=== PATIENT | male | born 1995 | race Hispanic/Latino ===

== ENCOUNTER → 2019-05-07 | Day surgery (SDC) | payer BC ==
[~2019-05-07] MED LIST: CEFAZOLIN SOD 1 GM/NS 50ML 50 ML IV ONE; DEXAMETHASONE SOD PHOS INJ 4 MG/ML VIAL ONE; FENTANYL CITRATE/PF 100MCG/2 ML INJ ONE; HYDROMORPHONE 2MG/ML 2 MG/ML ML ONE; KETOROLAC TROMETHAMINE 30 MG/ML VIAL ONE; LIDOCAINE HCL 2% LOCAL INJ 5 ML SDV VIAL INJ ONE; MIDAZOLAM HCL 2 MG/2 ML VIAL ONE; ONDANSETRON HCL INJ 2MG/ML 2ML 2 MG/ML VIAL ONE; PROPOFOL IV EMULSION 10 MG/ML 20 ML VIAL ONE; SEVOFLURANE INHAL SOLN 250 ML PEN BTL ONE; TYLENOL WITH C1 EACH PO
--- OUTSIDE RECORDS SUMMARY | 2019-05-07 05:38 | XMS REPORT ---
Author Author [facility] Address Unknown Phone Unavailable Care Team Providers [employer] Head Name Role Phone Unavailable Unavailable Payers Payer Name Policy Type Policy Number Effective Date Expiration Date Problems This patient has no known problems. Allergies, Adverse Reactions, Alerts Allergy Name Allergy Type Status Severity Reaction(s) Onset Date Inactive Date Treating Clinician Comments No Known Allergies DA Active U 2019-04-05 00:00:00 No Known Allergies DA Active U 2019-01-30 00:00:00 No Known Allergies DA Active U 2015-03-19 00:00:00 Medications This patient has no known medications. Results Test Description Test Time Test Comments Text Results Atomic Results Result Comments - CT ABD PELVIS W/CONT 2019-04-05 13:17:00 Name: MARIANNE SMITH [facility] : 1995 Age/S: 23 / M [address] [facility] Unit #: [id number] Loc: [place] [address] Phys: Ramon Redman EQUIPMENT COORDINATOR Acct: [id number] Dis Date: Status: REG ER PHONE #: [phone] Exam Date: 04/05/2019 1254 FAX #: [phone] Reason: LLQ ABDOMINAL PAIN EXAMS: CPT CODE: [id number] CT ABD PELVIS W/CONT 87499 HISTORY: Left lower quadrant pain. COMPARISON: January 30, 2019. CT abdomen and pelvis with IV contrast: 100 mL of Isovue-370. Automated exposure control. CT ABDOMEN: The lung bases are clear. The liver is enhancing homogeneously. No discrete parenchymal mass. Gallbladder is without radiopaque stones. Portal vein and hepatic artery are patent. The liver is measuring 19.6 cm in length. The spleen is normal. The stomach distended incompletely but it is normal in appearance. Pancreas is enhancing homogeneously. Unremarkable adrenals. Kidneys are free from hydroureteronephrosis. Homogeneous enhancement. Bilateral excretion is noted. No pathologic adenopathy. Well-opacified abdominal and pelvic vasculature. No bowel obstruction or colitis or diverticulitis or enteritis. CT PELVIS: Poorly visualized normal appendix. No inflammatory changes are noted. Pelvic bowel loops are unobstructed. Decompressed urinary bladder is limited in evaluation. The prostate is enlarged. No pelvic pathologic adenopathy. No free fluid or free air or abscess. The subcutaneous tissues and the musculature demonstrating normal appearance. No lytic or blastic lesions are noted within the bony skeleton. IMPRESSION: PAGE 1 Signed Report (CONTINUED) Name: MARIANNE SMITH [facility] : 1995 Age/S: 23 / M [address] [facility] Unit #: [id number] Loc: [place] [address] Phys: Ramon Redman NP Acct: [id number] Dis Date: Status: R EG ER PHONE #: [phone] Exam Date: 04/05/2019 1254 FAX #: [phone] Reason: LLQ ABDOMINAL PAIN EXAMS: CPT CODE: [id number] CT ABD PELVIS W/CONT 82965 <Continued> No acute intra-abdominal or intrapelvic pathology. at 1317 Reported and signed by: Dom Aponte M.D. CC: Ramon Redman NP Technologist:RT Isabelle(R),CT CTDI: DLP: Trnscb Date/Time: 04/05/2019 (1317) t.KAVINR.TH4 Orig Print D/T: S: 04/05/2019 (5966) PAGE 2 Signed Report BASIC METABOLIC PANEL 2019-04-05 12:45:00 SODIUM (test code=NA) 139 mmol/L 136-145 POTASSIUM (test code=K) 4.5 mmol/L 3.5-5.1 CHLORIDE (test code=CL) 105.0 mmol/L 98-107 CARBON DIOXIDE (test code=CO2) 31.0 mmol/L 21-32 ANION GAP (test code=GAP) 7.5 10-20 GLUCOSE (test code=GLU) 85 mg/dL 74-106 BLOOD UREA NITROGEN (test code=BUN) 14 mg/dL 7-18 GLOMERULAR FILTRATION RATE (test code=GFR) > 60 mL/min >=60 Estimated GFR by using Modified MDRD formula.Chronic kidney disease is defined as either kidney damageor GFR <60 mL/min/1.73 m2 for >3 months. CREATININE (test code=CREAT) 0.92 mg/dL 0.7-1.3 BUN/CREATININE RATIO (test code=BUN/CREA) 15.2 10-20 CALCIUM (test code=CA) 9.6 mg/dL 8.5-10.1 HEPATIC FUNCTION [id number] 12:45:00* Test Item Value Reference Range Comments TOTAL PROTEIN (test code=PROT) 8.5 gram/dL 6.4-8.2 ALBUMIN (test code=ALB) 4.7 g/dL 3.4-5.0 GLOBULIN (test code=GLOB) 3.8 gram/dL 2.7-4.2 ALBUMIN/GLOBULIN RATIO (test code=A/G) 1.2 0.75-1.50 BILIRUBIN TOTAL (test code=BILT) 0.70 mg/dL 0.0-1.0 BILIRUBIN DIRECT (test code=BILD) 0.70 mg/dL 0.0-0.20 SGOT/AST (test code=AST) 12 IUnit/L 15-37 SGPT/ALT (test code=ALT) 25 IUnit/L 12-78 ALKALINE PHOSPHATASE TOTAL (test code=ALKP) 59 IUnit/L 45-117 Note change in reference range due to change in reagent. [id number] 12:45:00* Test Item Value Reference Range Comments LIPASE (test code=LIP) 112 U/L 73.0-393.0 BASIC METABOLIC [id number] 11:40:00* Test Item Value Reference Range Comments SODIUM (test code=NA) 139 mmol/L 136-145 POTASSIUM (test code=K) 4.5 mmol/L 3.5-5.1 CHLORIDE (test code=CL) 105.0 mmol/L 98-107 CARBON DIOXIDE (test code=CO2) mmol/L 21-32 ANION GAP (test code=GAP) 10-20 GLUCOSE (test code=GLU) mg/dL 74-106 BLOOD UREA NITROGEN (test code=BUN) mg/dL 7-18 GLOMERULAR FILTRATION RATE (test code=GFR) mL/min >=60 CREATININE (test code=CREAT) mg/dL 0.7-1.3 BUN/CREATININE RATIO (test code=BUN/CREA) 10-20 CALCIUM (test code=CA) mg/dL 8.5-10.1 HEPATIC FUNCTION [id number] 11:40:00* Test Item Value Reference Range Comments TOTAL PROTEIN (test code=PROT) gram/dL 6.4-8.2 ALBUMIN (test code=ALB) g/dL 3.4-5.0 GLOBULIN (test code=GLOB) gram/dL 2.7-4.2 ALBUMIN/GLOBULIN RATIO (test code=A/G) 0.75-1.50 BILIRUBIN TOTAL (test code=BILT) mg/dL 0.0-1.0 BILIRUBIN DIRECT (test code=BILD) mg/dL 0.0-0.20 SGOT/AST (test code=AST) IUnit/L 15-37 SGPT/ALT (test code=ALT) IUnit/L 12-78 ALKALINE PHOSPHATASE TOTAL (test code=ALKP) IUnit/L 45-117 [id number] 11:40:00* Test Item Value Reference Range Comments LIPASE (test code=LIP) U/L 73.0-393.0 CBC W/O [id number] 11:27:00* Test Item Value Reference Range Comments WHITE BLOOD CELL (test code=WBC) 5.1 K/mm3 4.5-12.5 RED BLOOD CELL (test code=RBC) 5.53 mill/mm3 4.0-5.8 HEMOGLOBIN (test code=HGB) 16.4 gram/dL 13.0-17.5 HEMATOCRIT (test code=HCT) 48.8 % 42.0-52.0 MEAN CELL VOLUME (test code=MCV) 88.2 fL 80-98 MEAN CELL HGB (test code=MCH) 29.7 picogram 27.0-33.0 MEAN CELL HGB CONCETRATION (test code=MCHC) 33.6 gram/dL 33.0-36.0 RED CELL DISTRIBUTION WIDTH (test code=RDW) 12.8 % 11.6-16.2 PLATELET COUNT (test code=PLT) 245 K/mm3 150-450 MEAN PLATELET VOLUME (test code=MPV) 10.8 fL 6.7-11.0 URINALYSIS [id number] 11:24:00* Test Item Value Reference Range Comments UA COLOR (test code=COLU) Light-Yellow YELLOW UA APPEARANCE (test code=APPU) CLEAR CLEAR UA GLUCOSE DIPSTICK (test code=DGLUU) NEGATIVE mg/dL NEGATIVE UA BILIRUBIN DIPSTICK (test code=BILU) NEGATIVE mg/dL NEGATIVE UA KETONE DIPSTICK (test code=KETU) NEGATIVE mg/dL NEGATIVE UA SPECIFIC GRAVITY (test code=SGU) 1.015 1.001-1.035 UA BLOOD DIPSTICK (test code=SANDRO) Negative mg/dL NEGATIVE UA PH DIPSTICK (test code=LILIBETH) 7.0 5.0-8.0 UA PROTEIN DIPSTICK (test code=PROU) NEGATIVE mg/dL NEGATIVE UA UROBILINIOGEN DIPSTICK (test code=URO) Normal mg/dL NEGATIVE UA NITRITE DIPSTICK (test code=RAYNE) NEGATIVE NEGATIVE UA LEUKOCYTE ESTERASE W REFLEX (test code=LEUUR) NEGATIVE Shahab/uL NEGATIVE UA WBC (test code=WBCU) 0-5 per HPF 0-5 UA BACTERIA (test code=BACU) NONE SEEN #/HPF NONE Urine Source? Clean CatchDRUGS OF ABUSE SCREEN [id number] 11:24:00* Test Item Value Reference Range Comments URN COCAINE (test code=COCAURN) NEGATIVE <300 ng/mL URN CANNABINOIDS (test code=CANNABURN) NEGATIVE <50 ng/mL URN AMPHETAMINE (test code=AMPHETURN) NEGATIVE <1000 ng/mL URN BARBITURATE (test code=BARBITURN) NEGATIVE <200 ng/mL URN BENZODIAZEPINE (test code=BENZOURN) NEGATIVE <200 ng/mL URN OPIATES (test code=OPIATURN) NEGATIVE <300 ng/mL URN PHENCYCLIDINE (PCP) (test code=PHENCURN) NEGATIVE <25 ng/mL URN METHADONE (test code=METHAURN) NEGATIVE <300 ng/mL Urine Source? Clean CatchURINALYSIS [id number] 11:20:00* Test Item Value Reference Range Comments UA COLOR (test code=COLU) Light-Yellow YELLOW UA APPEARANCE (test code=APPU) CLEAR CLEAR UA GLUCOSE DIPSTICK (test code=DGLUU) NEGATIVE mg/dL NEGATIVE UA BILIRUBIN DIPSTICK (test code=BILU) NEGATIVE mg/dL NEGATIVE UA KETONE DIPSTICK (test code=KETU) NEGATIVE mg/dL NEGATIVE UA SPECIFIC GRAVITY (test code=SGU) 1.015 1.001-1.035 UA BLOOD DIPSTICK (test code=SANDRO) Negative mg/dL NEGATIVE UA PH DIPSTICK (test code=LILIBETH) 7.0 5.0-8.0 UA PROTEIN DIPSTICK (test code=PROU) NEGATIVE mg/dL NEGATIVE UA UROBILINIOGEN DIPSTICK (test code=URO) Normal mg/dL NEGATIVE UA NITRITE DIPSTICK (test code=RAYNE) NEGATIVE NEGATIVE UA LEUKOCYTE ESTERASE W REFLEX (test code=LEUUR) NEGATIVE Shahab/uL NEGATIVE UA WBC (test code=WBCU) 0-5 per HPF 0-5 UA BACTERIA (test code=BACU) NONE SEEN #/HPF NONE Urine Source? Clean CatchDRUGS OF ABUSE SCREEN [id number] 11:20:00* Test Item Value Reference Range Comments URN COCAINE (test code=COCAURN) <300 ng/mL URN CANNABINOIDS (test code=CANNABURN) <50 ng/mL URN AMPHETAMINE (test code=AMPHETURN) <1000 ng/mL URN BARBITURATE (test code=BARBITURN) <200 ng/mL URN BENZODIAZEPINE (test code=BENZOURN) <200 ng/mL URN OPIATES (test code=OPIATURN) <300 ng/mL URN PHENCYCLIDINE (PCP) (test code=PHENCURN) <25 ng/mL URN METHADONE (test code=METHAURN) <300 ng/mL Urine Source? Clean CatchCBC W/O [id number] 11:16:00* Test Item Value Reference Range Comments WHITE BLOOD CELL (test code=WBC) K/mm3 4.5-12.5 RED BLOOD CELL (test code=RBC) mill/mm3 4.0-5.8 HEMOGLOBIN (test code=HGB) 16.4 gram/dL 13.0-17.5 HEMATOCRIT (test code=HCT) 48.8 % 42.0-52.0 MEAN CELL VOLUME (test code=MCV) fL 80-98 MEAN CELL HGB (test code=MCH) picogram 27.0-33.0 MEAN CELL HGB CONCETRATION (test code=MCHC) gram/dL 33.0-36.0 RED CELL DISTRIBUTION WIDTH (test code=RDW) % 11.6-16.2 PLATELET COUNT (test code=PLT) K/mm3 150-450 MEAN PLATELET VOLUME (test code=MPV) fL 6.7-11.0 - CT ABD PELVIS [id number] 12:20:00 Name: MARIANNE SMITH [facility] : 1995 Age/S: 23 / M [address] [facility] Unit #: [id number] Loc: [place] [address] Phys: Tonia Johnson EQUIPMENT COORDINATOR Acct: [id number] Dis Date: Status: REG ER PHONE #: [phone] Exam Date: 01/30/2019 1006 FAX #: [phone] Reason: left side abd pain Report Has Been Amended EXAMS: CPT CODE: [id number] CT ABD PELVIS W/CONT 85371 Addendum - 01/30/2019 SIGNED 01/30/2019 ADDENDUM: [id number] CT/CTABPLW ADDENDUM: Outside images available for comparison from January 28, 2019. There is no intussusception on the current study at the site noted previously. at 1220 Reported and signed by: Dom Aponte M.D. Transcribed: 01/30/2019 (1220) t.[email or web address].TH4 Report HISTORY: Left-sided abdominal pain. COMPARISON: Abdominal ultrasound and x-ray from same day. CT of abdomen and pelvis with IV contrast: Automated exposure control. 100 and normal Isovue-370. CT of abdomen: The lung bases are clear. Small noncalcified 3 mm left basal lung nodule is too small to characterize. The liver is enhancing homogeneously no discrete mass is noted. Gallbladder is without radiopaque stones. The liver is measuring 18.4 cm in length. Portal vein is patent. Hepatic artery is patent. Unremarkable spleen. The stomach distended incompletely however it is normal in appearance. Pancreas is enhancing homogeneously. Adrenals are normal. Kidneys are free from hydroureteronephrosis. Homogeneous enhancement. Bilateral excretion. No pathologic adenopathy. Well-opacified abdominal and pelvic PAGE 1 Signed Report (CONTINUED) Name: MARIANNE SMITH [facility] : 1995 Age/S: 23 / M [address] [facility] Unit #: [id number] Loc: [place] [address] [facility] s: Tonia Johnson EQUIPMENT COORDINATOR Acct: [id number] Dis Date: Status: REG ER PHONE #: [phone] Exam Date: 01/30/2019 1006 FAX #: [phone] Reason: left side abd pain Report Has Been Amended EXAMS: CPT CODE: [id number] CT ABD PELVIS W/CONT 58622 <Continued> vasculature. Contrast within the colon. The small bowel loops are unremarkable. No obstruction or intussusception is visible. This fluid distention of the small bowel loops in the left upper quadrant with no wall thickening is noted. CT PELVIS: Appendix is normal. Pelvic bowel loops are unobstructed. Contrast is seen to the level of the rectum. No free fluid or free abscesses noted. The urinary bladder is distended incompletely but unremarkable. The prostate is not enlarged. No pelvic pathologic adenopathy. Subcutaneous tissues and the musculature are normal in appearance. No lytic or blastic lesions are noted within the bony skeleton. IMPRESSION: No evidence for intussusception on this examination. The small bowel loops are fluid-filled and the left upper quadrant. There is no obstruction with passage of contrast to the level of the rectum. No wall thickening is noted. Appendix is normal. No free fluid, free air or abscess is noted. at 1016 Reported and signed by: Dom Aponte M.D. CC: Jesse Ureña MD; Tonia Johnson NP Technologist:Nevaeh Henry RT(R); Mai Campos CTDI: DLP: Trnscb Date/Time: 01/30/2019 (1016) t.[email or web address] Orig Print D/T: S: 01/30/2019 (1019) CTDI: DLP: PAGE 2 Signed Report - CT ABD PELVIS [id number] 10:16:00 Name: MARIANNE SMITH [facility] : 1995 Age/S: 23 / M [address] Unit #: [id number] Loc: [place] [address] Phys: Armand Johnson n EQUIPMENT COORDINATOR Acct: [id number] Di s Date: Status: REG ER PHONE #: [phone] Exam Date: 01/30/2019 1003 FAX #: [phone] Reason: left side abd pain EXAMS: CPT CODE: [id number] CT ABD PELVIS W/CONT 94141 HISTORY: Left-sided abdom inal pain. COMPARISON: Abdominal ultrasound and x-ray from same da y. CT of abdomen and pelvis with IV contrast: Automated exposure c ontrol. 100 and normal Isovue-370. CT of abdomen: The lung bases are clear. Small noncalcified 3 mm left basal lung nodu le is too small to characterize. The liver is enhancing homogeneou sly no discrete mass is noted. Gallbladder is without radiopaque stones. T he liver is measuring 18.4 cm in length. Portal vein is patent. Hepatic ar bernie is patent. Unremarkable spleen. The stomach distended incompl etely however it is normal in appearance. Pancreas is enhanc ing homogeneously. Adrenals are normal. Kidneys are free from hydr oureteronephrosis. Homogeneous enhancement. Bilateral excretion. No pathologic adenopathy. Well-opacified abdominal and pelvic vascula ture. Contrast within the colon. The small bowel loops are unremar kable. No obstruction or intussusception is visible. This fluid distention of the small bowel loops in the left upper quadrant with no wall th ickening is noted. CT PELVIS: Appendix is normal. Pe lvic bowel loops are unobstructed. Contrast is seen to the level of the re ctum. No free fluid or free abscesses noted. The urinary odette dder is distended incompletely but unremarkable. The prostate is not enlar ged. No pelvic pathologic adenopathy. Subcutaneous tissues and the musculature are normal in appearance. No lytic or blastic lesions are not ed within the bony skeleton. IMPRESSION: PAGE 1 Signed Report (CONTINUED) Name: MARIANNE SMITH [facility] : 1995 Age/S: 23 / M [facility] Unit #: [id number] Loc: [place] [address] Phys: Tonia Johnson EQUIPMENT COORDINATOR Acct: [id number] Dis Date: atus: REG ER PHONE #: [phone] Exam Roderick e: 01/30/2019 1006 FAX #: [phone] Reason: left si de abd pain EXAMS: CPT CODE: [id number] CT ABD PELVIS W/CONT 27316 <Continued> No evidence for intussusception on this examination. The small bowel loops are fluid- filled and the left upper quadrant. There is no obstruction with passage of contrast to the level of the rectum. No wall thickening is noted. Appendix is normal. No free fluid, free air or abscess is noted. at 1016 Reported and signed by: Dom Aponte M.D. CC: Jesse Ureña MD; Tonia Johnson NP Technologist:Nevaeh Henry RT(R); Mai Campos CTDI: DLP: Trnscb Date/Time: 01/30/2019 (1016) [email or web address] Orig Print D/T: S: 01/30/2019 (1019) CTDI: DLP: PAGE 2 Signed Report BASIC METABOLIC [id number] 09:54:00* Test Item Value Reference Range Comments SODIUM (test code=NA) 141 mmol/L 136-145 POTASSIUM (test code=K) 4.9 mmol/L 3.5-5.1 CHLORIDE (test code=CL) 107.0 mmol/L 98-107 CARBON DIOXIDE (test code=CO2) 29.0 mmol/L 21-32 ANION GAP (test code=GAP) 9.9 10-20 GLUCOSE (test code=GLU) 88 mg/dL 74-106 BLOOD UREA NITROGEN (test code=BUN) 7 mg/dL 7-18 GLOMERULAR FILTRATION RATE (test code=GFR) > 60 mL/min >=60 Estimated GFR by using Modified MDRD formula.Chronic kidney disease is defined as either kidney damageor GFR <60 mL/min/1.73 m2 for >3 months. CREATININE (test code=CREAT) 0.80 mg/dL 0.7-1.3 BUN/CREATININE RATIO (test code=BUN/CREA) 8.8 10-20 CALCIUM (test code=CA) 9.3 mg/dL 8.5-10.1 HEPATIC FUNCTION [id number] 09:54:00* Test Item Value Reference Range Comments TOTAL PROTEIN (test code=PROT) 7.9 gram/dL 6.4-8.2 ALBUMIN (test code=ALB) 4.2 g/dL 3.4-5.0 GLOBULIN (test code=GLOB) 3.7 gram/dL 2.7-4.2 ALBUMIN/GLOBULIN RATIO (test code=A/G) 1.1 0.75-1.50 BILIRUBIN TOTAL (test code=BILT) 1.20 mg/dL 0.0-1.0 BILIRUBIN DIRECT (test code=BILD) 0.28 mg/dL 0.0-0.20 SGOT/AST (test code=AST) 18 IUnit/L 15-37 SGPT/ALT (test code=ALT) 19 IUnit/L 12-78 ALKALINE PHOSPHATASE TOTAL (test code=ALKP) 51 IUnit/L 45-117 Note change in reference range due to change in reagent. [id number] 09:54:00* Test Item Value Reference Range Comments LIPASE (test code=LIP) 212 U/L 73.0-393.0 BASIC METABOLIC [id number] 09:40:00* Test Item Value Reference Range Comments SODIUM (test code=NA) 141 mmol/L 136-145 POTASSIUM (test code=K) 4.9 mmol/L 3.5-5.1 CHLORIDE (test code=CL) 107.0 mmol/L 98-107 CARBON DIOXIDE (test code=CO2) mmol/L 21-32 ANION GAP (test code=GAP) 10-20 GLUCOSE (test code=GLU) mg/dL 74-106 BLOOD UREA NITROGEN (test code=BUN) mg/dL 7-18 GLOMERULAR FILTRATION RATE (test code=GFR) mL/min >=60 CREATININE (test code=CREAT) mg/dL 0.7-1.3 BUN/CREATININE RATIO (test code=BUN/CREA) 10-20 CALCIUM (test code=CA) mg/dL 8.5-10.1 HEPATIC FUNCTION [id number] 09:40:00* Test Item Value Reference Range Comments TOTAL PROTEIN (test code=PROT) gram/dL 6.4-8.2 ALBUMIN (test code=ALB) g/dL 3.4-5.0 GLOBULIN (test code=GLOB) gram/dL 2.7-4.2 ALBUMIN/GLOBULIN RATIO (test code=A/G) 0.75-1.50 BILIRUBIN TOTAL (test code=BILT) mg/dL 0.0-1.0 BILIRUBIN DIRECT (test code=BILD) mg/dL 0.0-0.20 SGOT/AST (test code=AST) IUnit/L 15-37 SGPT/ALT (test code=ALT) IUnit/L 12-78 ALKALINE PHOSPHATASE TOTAL (test code=ALKP) IUnit/L 45-117 [id number] 09:40:00* Test Item Value Reference Range Comments LIPASE (test code=LIP) U/L 73.0-393.0 - ABDOMEN [id number] 09:38:00 Name: MARIAN[facility] SMITH [facility] : 1995 Age/S: 23 / M [address] [facility] Unit #: [id number] Loc: [place] [address] Phys: Tonia Johnson EQUIPMENT COORDINATOR Acct: [id number] Dis Date: Status: REG ER PHONE #: [phone] Exam Date: 01/30/2019929 FAX #: [phone] Reason: dx with intussusception, abd pain EXAMS: CPT CODE: [id number] ABDOMEN LTD 08764 HISTORY: Intussusception. COMPARISON: X-ray from same day. Distended loop of bowel is noted in the left lower quadrant the etiology is not clear. Correlate with CT scan as is difficult to assess for intussusception on ultrasound for an adult. No free fluid. IMPRESSION: Distended loop of bowel of unclear significance. Correlate with CT scan for definitive evaluation. at 0938 Reported and signed by: Dom Aponte M.D. CC: Tonia Johnson NP Technologist: MARCIE EID RT(R),RDMS Trnscb Date/Time: 01/30/2019 (937) [email or web address] Orig Print D/T: S: 01/30/2019 (0933) Probe: PAGE 1 Signed Report CBC W/O [id number] 09:37:00* Test Item Value Reference Range Comments WHITE BLOOD CELL (test code=WBC) 5.0 K/mm3 4.5-12.5 RED BLOOD CELL (test code=RBC) 5.31 mill/mm3 4.0-5.8 HEMOGLOBIN (test code=HGB) 15.8 gram/dL 13.0-17.5 HEMATOCRIT (test code=HCT) 48.7 % 42.0-52.0 MEAN CELL VOLUME (test code=MCV) 91.7 fL 80-98 MEAN CELL HGB (test code=MCH) 29.8 picogram 27.0-33.0 MEAN CELL HGB CONCETRATION (test code=MCHC) 32.4 gram/dL 33.0-36.0 RED CELL DISTRIBUTION WIDTH (test code=RDW) 13.1 % 11.6-16.2 PLATELET COUNT (test code=PLT) 235 K/mm3 150-450 MEAN PLATELET VOLUME (test code=MPV) 10.6 fL 6.7-11.0 URINALYSIS [id number] 09:35:00* Test Item Value Reference Range Comments UA COLOR (test code=COLU) COLORLESS YELLOW UA APPEARANCE (test code=APPU) CLEAR CLEAR UA GLUCOSE DIPSTICK (test code=DGLUU) NEGATIVE mg/dL NEGATIVE UA BILIRUBIN DIPSTICK (test code=BILU) NEGATIVE mg/dL NEGATIVE UA KETONE DIPSTICK (test code=KETU) NEGATIVE mg/dL NEGATIVE UA SPECIFIC GRAVITY (test code=SGU) 1.004 1.001-1.035 UA BLOOD DIPSTICK (test code=SANDRO) Negative mg/dL NEGATIVE UA PH DIPSTICK (test code=LILIBETH) 7.0 5.0-8.0 UA PROTEIN DIPSTICK (test code=PROU) NEGATIVE mg/dL NEGATIVE UA UROBILINIOGEN DIPSTICK (test code=URO) NEGATIVE mg/dL NEGATIVE UA NITRITE DIPSTICK (test code=RAYNE) NEGATIVE NEGATIVE UA LEUKOCYTE ESTERASE W REFLEX (test code=LEUUR) NEGATIVE Shahab/uL NEGATIVE UA WBC (test code=WBCU) 0-5 per HPF 0-5 UA RBC (test code=RBCU) 0-2 #/HPF 0-5 UA BACTERIA (test code=BACU) FEW #/HPF NONE Urine Source? Clean CatchCBC W/O [id number] 09:32:00* Test Item Value Reference Range Comments WHITE BLOOD CELL (test code=WBC) K/mm3 4.5-12.5 RED BLOOD CELL (test code=RBC) mill/mm3 4.0-5.8 HEMOGLOBIN (test code=HGB) 15.8 gram/dL 13.0-17.5 HEMATOCRIT (test code=HCT) 48.7 % 42.0-52.0 MEAN CELL VOLUME (test code=MCV) fL 80-98 MEAN CELL HGB (test code=MCH) picogram 27.0-33.0 MEAN CELL HGB CONCETRATION (test code=MCHC) gram/dL 33.0-36.0 RED CELL DISTRIBUTION WIDTH (test code=RDW) % 11.6-16.2 PLATELET COUNT (test code=PLT) K/mm3 150-450 MEAN PLATELET VOLUME (test code=MPV) fL 6.7-11.0 URINALYSIS [id number] 09:31:00* Test Item Value Reference Range Comments UA COLOR (test code=COLU) YELLOW UA APPEARANCE (test code=APPU) CLEAR CLEAR UA GLUCOSE DIPSTICK (test code=DGLUU) NEGATIVE mg/dL NEGATIVE UA BILIRUBIN DIPSTICK (test code=BILU) NEGATIVE mg/dL NEGATIVE UA KETONE DIPSTICK (test code=KETU) NEGATIVE mg/dL NEGATIVE UA SPECIFIC GRAVITY (test code=SGU) 1.004 1.001-1.035 UA BLOOD DIPSTICK (test code=SANDRO) Negative mg/dL NEGATIVE UA PH DIPSTICK (test code=LILIBETH) 7.0 5.0-8.0 UA PROTEIN DIPSTICK (test code=PROU) NEGATIVE mg/dL NEGATIVE UA UROBILINIOGEN DIPSTICK (test code=URO) NEGATIVE mg/dL NEGATIVE UA NITRITE DIPSTICK (test code=RAYNE) NEGATIVE NEGATIVE UA LEUKOCYTE ESTERASE W REFLEX (test code=LEUUR) NEGATIVE Shahab/uL NEGATIVE UA WBC (test code=WBCU) per HPF 0-5 UA BACTERIA (test code=BACU) per HPF NONE Urine Source? Clean Catch- XR ABDOMEN AP 1 [id number] 09:06:00 FAX: Jesse Hinkle [phone] [place]: St: REG FAX: Tonia Johnson EQUIPMENT COORDINATOR Name: MARIANNE SMITH [facility] : 1995 Age/S: 23/M [address] [facility] Unit #: [id number] Loc: [place] [address] Phys: Tonia Johnson NP Acct: [id number] Dis Date: Status: REG ER PHONE #: [phone] Exam Date: 01/30/2019 0843 FAX #: [phone] Reason: abd pain, dx with int ussusception EXAMS: CPT CODE: [id number] XR ABDOMEN AP 1 V [id number] HISTORY: Abdominal pain and intussusception. ISAAK RISON: None available. Contrast to the colon. No obstructing patte rn is visible. Bowel gas pattern is within normal limits. IMPRESSION: Normal bowel gas pattern with moderate amount of c ontrast within the colon. No evidence obstruction. Brayden richard Signed by Romulo Aponte on 01/30/2019 at 0906 Reported and signed by: Dom Aponte M.D. CC: Jesse Serna MD; Tonia Johnson NP Technologist: RT JANNETH(Cassie) Trnscrd Date/Time/By: 01/30/2019 (0906) : By: [email or web address] Orig Print D/T: S: 01/30/2019 (0909) PAGE 1 Signed Report
[2019-05-07 09:30] VITALS: BP 134/84
--- NOTE | 2019-05-07 15:00 | Operative Report ---
DATE OF PROCEDURE: 05/07/2019 SURGEON: Joselito Tee MD POWER DIGGER OPERATOR: Jaylan Clark, certified PA. PREOPERATIVE DIAGNOSIS: Displaced right 5th metacarpal neck fracture. POSTOPERATIVE DIAGNOSIS: Displaced right 5th metacarpal neck fracture. PROCEDURES: Closed reduction, percutaneous pinning, right 5th metacarpal neck. INDICATIONS: The patient is a 24-year-old gentleman, who has a markedly displaced right 5th metacarpal neck fracture. The findings and options have been discussed with the patient and we plan on a closed reduction and percutaneous pin fixation. The details of the surgery have been discussed. Pin removal in the clinic was explained. He states he understands and wishes to proceed. PROCEDURE IN DETAIL: The patient was brought to the operating room and placed under general anesthetic. His right upper extremity was prepped and draped in a sterile manner. A preoperative time-out was performed. A C-arm image intensifier was used to assist in performing a closed reduction. Two 0.062 K-wires were then placed from the head of the metacarpal into the shaft. Nice pin fixation and reduction were obtained. The pins were cut short and capped. Final x-rays were recorded. He was placed into an ulnar gutter splint. He was extubated and transported to the recovery room in stable condition. There was no blood loss and all needle and sponge counts were correct. Joselito Tee MD DR/AMBER /[id number]
== END | disposition home or self-care (01) ==
LOC: OR 05:30
PROVIDERS: ATTEND Specialist
DX: S62.336A Displaced fracture of neck of fifth metacarpal bone, right hand, initial encounter for closed fracture (principal)
CPT/HCPCS: 26608; 76000; C1713; J0690; J1100; J1170; J1885; J2001; J2250; J2405; J2704; J3010